=== PATIENT | female | born 1970 | race Caucasian/White ===

== ENCOUNTER 2017-10-06 08:17 | Emergency (ER) | payer BC ==
[2017-10-06 09:31] VITALS: BP 127/85
--- NOTE | 2017-10-06 10:39 | UC ---
General HPI - HPI Summary HPI Summary: Patient presents complaining of a rash just above her upper and below her lower lip on the left. She states that she gets fever blisters all the time but those usually occur on the lips unlike this which is above or below. She states that this began yesterday and today she notes tingling to the sites. The spot on the lower lip is causing pain into the left jaw which she describes as soreness. She also notes that her eyes feel blurry and "gooey". No fever or uri. - History of Current Complaint Chief Complaint: UCRash Stated Complaint: PUFFY FACE Time Seen by Provider: 10/06/17 10:30 Hx Obtained From: Patient Hx Last Menstrual Period: 2 days Onset/Duration: Gradual Onset Timing: Constant Pain Intensity: 4 Aggravating: nothing Alleviating: nothing Associated Signs & Symptoms: Negative: Fever, Headache - Allergy/Home Medications Allergies/Adverse Reactions: Allergies Allergy/AdvReac Type Severity Reaction Status Date / Time ampicillin Allergy Rash Verified 10/06/17 09:32 erythromycin base Allergy Difficulty Verified 10/06/17 09:32 Breathing Fish Containing Products Allergy Difficulty Verified 10/06/17 09:32 Breathing Penicillins Allergy Rash Verified 10/06/17 09:32 tetracycline Allergy Rash Verified 10/06/17 09:32 Home Medications: Home Medications Lysine HCl [l-Lysine] 1,000 mg PO BID PRN 10/06/17 [History Confirmed 10/06/17] PMH/Surg Hx/FS Hx/Imm Hx Endocrine History: Dyslipidemia Cardiovascular History: Hypertension Psychological History: Depression - Surgical History Surgical History: Yes Surgery Procedure, Year, and Place: 3 Left knee surgeries. 1 Right knee surgery. cholecystectomy 2011. Left carotid artery-09/09/14. LEEP 1997-D &C 2002. NECK 2016 for pinched nerve - Family History Known Family History: Positive: Cardiac Disease - Social History Occupation: Employed Full-time Alcohol Use: Occasionally Alcohol Amount: 2 DRINKS Substance Use Type: None Substance Use Comment - Amount & Last Used: emerald Smoking Status (MU): Heavy Every Day Tobacco Smoker Type: Cigarettes Amount Used/How Often: 5 CIGARETTES DAY Have You Smoked in the Last Year: Yes Household Exposure Type: Cigarettes - Immunization History Most Recent Influenza Vaccination: NONE Most Recent Tetanus Shot: UNKNOWN Most Recent Pneumonia Vaccination: NONE Vaccination Up to Date: Yes Review of Systems Constitutional: Negative Skin: Rash Eyes: Drainage ENT: Negative Respiratory: Negative Cardiovascular: Negative Gastrointestinal: Negative Genitourinary: Negative Motor: Negative Neurovascular: Negative Musculoskeletal: Negative Neurological: Negative Psychological: Negative Is Patient Immunocompromised?: No All Other Systems Reviewed And Are Negative: Yes Physical Exam Triage Information Reviewed: Yes Appearance: Well-Appearing Vital Signs: Initial Vital Signs Temp 98.1 F 10/06/17 09:19 Pulse 81 10/06/17 09:19 Resp 18 10/06/17 09:19 BP 127/85 10/06/17 09:19 Pulse Ox 100 10/06/17 09:19 Vital Signs Reviewed: Yes Eyes: Positive: Conjunctiva Clear, Other: - 20/30 OD , OS, 20/25 OU uncorrected. No periorbital edema. PERRL, EOMI. No dendrites, abrasions or perforations with stain. ENT: Positive: Pharynx normal, TMs normal. Negative: Nasal congestion, Nasal drainage Neck: Positive: Supple, Nontender, No Lymphadenopathy, Other: - No auricular adenopathy Respiratory: Positive: Lungs clear, Normal breath sounds Cardiovascular: Positive: RRR, No Murmur Abdomen Description: Positive: Nontender, No Organomegaly, Soft Bowel Sounds: Positive: Present Musculoskeletal: Positive: ROM Intact Neurological: Positive: Alert Psychological: Positive: Age Appropriate Behavior Skin Exam: Normal Skin: Positive: rashes - Single vesicular cluster just above L upper lip with scant yellowing. Second smaller cluster just below L lower lip with no yellowing. Only slight local swelling to each site. No other rashes. Diagnostics - Laboratory Diagnostic Studies Completed/Ordered: bacterial and viral cultures are pending Course/Dx - Course Course Of Treatment: Procedure: upper rash clensed with alcohol. Center of cluster unroofed with tip 18G needle and cultyres obtained. Baitracin applied. No bleeding. Pt tolerated well. no concern for occular herpes. not typical of shingles. eye exam is reassuring. I think this is a rash from the herpes family thus will cover with valtrex. since upper cluster is ? pustular will cover with bactroban as well. viral and bacterial cultures are pending. given recurrence, dermatology referal given. - Differential Dx - Multi-Symptom Provider Diagnoses: Acute Vesicular rash above and below L upper and lower lip. Discharge - Sign-Out/Discharge Documenting (check all that apply): Patient Departure All imaging exams completed and their final reports reviewed: No Studies - Discharge Plan Condition: Stable Disposition: HOME Prescriptions: Mupirocin 2% OINT* [Bactroban 2 % Oint*] 1 applic TOPICAL BID 7 Days #1 tube ValACYclovir (*) [Valtrex 1 GM(*)] 1 gm PO BID 7 Days #14 tab Patient Education Materials: Oral Herpes Simplex Virus Infections (ED) Referrals: Quyen EVANS,Armando Daniels [Primary Care Provider] - If Needed Colby Little MD [Medical Doctor] - 7 Days - Billing Disposition and Condition Condition: STABLE Disposition: Home
[2017-10-06] MEDS ORDERED: Fluorescein Sod TOPICAL 0.6* 0.6 MG TEST OPHTHALMIC ONE (10:41)
== END 2017-10-06 11:52 | disposition home or self-care (01) ==
LOC: UCCORT 08:17
DX: R21 Rash and other nonspecific skin eruption (principal); Z88.0 Allergy status to penicillin; E88.1 Lipodystrophy, not elsewhere classified; F17.210 Nicotine dependence, cigarettes, uncomplicated
CPT/HCPCS: 87070; 87077; 87186; 87205; 87252; 99212; G0463

== ENCOUNTER 2017-12-09 11:54 | Emergency (ER) | payer BC ==
[2017-12-09 12:53] VITALS: BP 134/96
--- NOTE | 2017-12-09 13:11 | UC ---
Dental HPI - HPI Summary HPI Summary: Pt c/o right side dental pain that began 3-4 days ago. Woke this morning with sudeen onset right side swelling to face and pain. Pt waersa partial denture and reports is unable to put it in this morning due to swelling. - History of Current Complaint Chief Complaint: UCDentalProblem Stated Complaint: ORAL CONCERN Time Seen by Provider: 12/09/17 12:53 Hx Obtained From: Patient Hx Last Menstrual Period: 11/27 ?: No Onset/Duration: Sudden Onset Severity: Moderate Pain Intensity: 7 Aggravating Factor(s): Chewing Alleviating Factor(s): Nothing Related History: Swelling - Allergies/Home Medications Allergies/Adverse Reactions: Allergies Allergy/AdvReac Type Severity Reaction Status Date / Time ampicillin Allergy Rash Verified 12/09/17 12:42 erythromycin base Allergy Difficulty Verified 12/09/17 12:42 Breathing Fish Containing Products Allergy Difficulty Verified 12/09/17 12:42 Breathing Penicillins Allergy Rash Verified 12/09/17 12:42 tetracycline Allergy Rash Verified 12/09/17 12:42 PMH/Surg Hx/FS Hx/Imm Hx Previously Healthy: Yes - Surgical History Surgical History: Yes Surgery Procedure, Year, and Place: 3 Left knee surgeries. 1 Right knee surgery. cholecystectomy 2011. Left carotid artery-09/09/14. LEEP 1997-D &C 2002. NECK 2016 for pinched nerve - Family History Known Family History: Positive: Cardiac Disease - Social History Occupation: Employed Full-time Lives: With Family Alcohol Use: Occasionally Alcohol Amount: 2 DRINKS Substance Use Type: Prescribed Substance Use Comment - Amount & Last Used: norco Smoking Status (MU): Heavy Every Day Tobacco Smoker Type: Cigarettes Amount Used/How Often: 5 CIGARETTES DAY Have You Smoked in the Last Year: Yes Household Exposure Type: Cigarettes - Immunization History Most Recent Influenza Vaccination: NONE Most Recent Tetanus Shot: UNKNOWN Most Recent Pneumonia Vaccination: NONE Vaccination Up to Date: Yes Review of Systems Constitutional: Negative Skin: Negative Eyes: Negative ENT: Dental Pain Respiratory: Negative Cardiovascular: Negative Gastrointestinal: Negative Genitourinary: Negative Motor: Negative Neurovascular: Negative Musculoskeletal: Negative Neurological: Negative Psychological: Negative Is Patient Immunocompromised?: No All Other Systems Reviewed And Are Negative: Yes Physical Exam Triage Information Reviewed: Yes Appearance: Pain Distress Vital Signs: Initial Vital Signs Temp 97.3 F 12/09/17 12:45 Pulse 94 11/03/18 12:45 Resp 18 12/09/17 12:45 BP 134/96 12/09/17 12:45 Pulse Ox 97 12/09/17 12:45 Vital Signs Reviewed: Yes Eye Exam: Normal ENT Exam: Normal Dental: Positive: Abscess @ - right side Neck exam: Normal Respiratory Exam: Normal Cardiovascular Exam: Normal Abdominal Exam: Normal Musculoskeletal Exam: Normal Neurological Exam: Normal Psychological Exam: Normal Skin Exam: Normal Dental Complaint Course/Dx - Differential Dx/Diagnosis Differential Diagnosis/Dx: Dental Abscess Provider Diagnoses: dental abscess Discharge - Sign-Out/Discharge Documenting (check all that apply): Patient Departure All imaging exams completed and their final reports reviewed: No Studies - Discharge Plan Condition: Stable Disposition: HOME Prescriptions: Clindamycin Cap(NF) [Clindamycin Cap 300 mg Cap(NF)] 300 mg PO TID #30 cap Ibuprofen TAB* [Motrin TAB* 800 MG] 800 mg PO Q8H #15 tab predniSONE TAB* [Deltasone 20 MG TAB*] 20 mg PO DAILY #4 tab Patient Education Materials: Dental Abscess (ED) Referrals: Quinton Medrano NP [Primary Care Provider] - If Needed Additional Instructions: Please keep your Dental appointment for 12/11/17. If symptoms worsens, please seek care at the closest emergency room. - Billing Disposition and Condition Condition: STABLE Disposition: Home
== END 2017-12-09 13:33 | disposition home or self-care (01) ==
LOC: UCCORT 11:54
DX: K04.7 Periapical abscess without sinus (principal); F17.210 Nicotine dependence, cigarettes, uncomplicated; Z88.0 Allergy status to penicillin; Z88.1 Allergy status to other antibiotic agents; Z91.013 Allergy to seafood
CPT/HCPCS: 99212; G0463